=== PATIENT | female | born 1975 | race Caucasian/White ===

== ENCOUNTER 2017-12-03 14:41 | Emergency (ER) | payer OTHER ==
[~2017-12-03 14:41] MED LIST: Ambien PO; Atarax,Vistaril PO; Bentyl PO; CARAFATE1 GM PO; Catapres-TTS 2 TD; Colace PO; Desyrel PO; Dulcolax PO; ENDOCET 5-3251 EACH; FERGON324 MG PO; Feosol PO; HYDROCHLOROTH12.5 M1; KlonoPIN PO; LOPRESSOR25 MG PO; LUNESTA2 MG; Lopressor PO; Miralax, Glycolax PO; ONDANSETRON HCL8 MG; OxyCONTIN PO; PHENERGAN25 MG PO; PROTONIX40 MG PO; PROzac PO; PriLOSEC PO; Proventil,Ventolin H IH; Remeron PO; Robitussin, Organidi PO; SEROQUEL200 MG PO; Senokot S,Pericolace PO; Skelaxin PO; TOPAMAX100 MG PO; TOPAMAX25 MG PO; TRAMADOL HCL50 MG PO; Theragran PO; Theragran W/Iron,MVI PO; Theragran-M,Centrum, PO; Thiamine,Vitamin B1 PO; ULTRAM50 MG PO; Vicodin,Norco 5/325 PO; ZOFRAN4 MG PO; ZOLOFT25 MG; Zestril,Prinivil PO; oxyCODONE PO
[2017-12-03 15:10] LABS: BASOPHIL (%) 0.4 % (0-1); BASOPHIL COUNT 0.1 K/uL (0-0.1); EOSINOPHIL (%) 0.4 % (0-5); EOSINOPHIL COUNT 0.1 K/uL (0-0.3); HEMATOCRIT 38.6 % (36.0-46.0); HEMOGLOBIN 13.6 G/DL (11.9-15.5); IMMATURE GRANULOCYTE (%) 0.7 % (0.0-0.7); LYMPHOCYTE (%) 15.7 % (15-42); LYMPHOCYTE COUNT 1.8 K/uL (1.0-2.8); MCH 31.5 PG (29.0-34.0); MCHC 35.2 G/DL (30.0-36.0); MCV 89.4 FL (83-99); MONOCYTE (%) 6.6 % (3-12); MONOCYTE COUNT 0.8 K/uL (0-0.8); NEUTROPHIL (%) 76.2 % (45-76); NEUTROPHIL COUNT 8.8 K/uL (1.8-6.4); PLATELET COUNT 267 K/uL (156-360); RBC DIS.WIDTH-CV 12.1 % (11.8-14.6); RBC DIS.WIDTH-SD 39.3 % (39-53); RED BLOOD COUNT 4.32 M/uL (3.80-5.20); WHITE BLOOD COUNT 11.5 K/uL (4.1-10.2)
[2017-12-03 15:30] LABS: AMYLASE 91 IU/L (1-118); CHLORIDE 97 mEq/L (99-109); POTASSIUM 4.4 mEq/L (3.7-5.4); SODIUM 129 mEq/L (136-147)
[2017-12-03 15:32] LABS: GLUCOSE 70 mg/dL (70-99)
[2017-12-03 15:35] LABS: SERUM ETHYL ALCOHOL 53 mg/dL
[2017-12-03 15:36] LABS: GFR ESTIMATE (CALCULATED) > 59 mL/min/
[2017-12-03 15:37] LABS: UREA NITROGEN (BUN) 28 mg/dL (9-23)
[2017-12-03 15:39] LABS: LIPASE 30 U/L (1.0-51.0)
[2017-12-03 15:46] LABS: QUANTITATIVE HCG < 4.0 MIU/ML
[2017-12-03] MEDS ORDERED: ROXICODONE5 MG PO (18:21)
== END 2017-12-03 20:06 | disposition home or self-care (01) ==
LOC: TRA 14:41
PROVIDERS: Emergency Medicine
DX: S01.511A Laceration without foreign body of lip, initial encounter (principal); M54.6 Pain in thoracic spine; M79.602 Pain in left arm; M54.2 Cervicalgia; M54.5 Low back pain; R41.0 Disorientation, unspecified; V47.5XXA Car driver injured in collision with fixed or stationary object in traffic accident, initial encounter; Y92.410 Unspecified street and highway as the place of occurrence of the external cause; I77.810 Thoracic aortic ectasia; M48.02 Spinal stenosis, cervical region; M47.894 Other spondylosis, thoracic region; M25.78 Osteophyte, vertebrae; J98.11 Atelectasis; K43.9 Ventral hernia without obstruction or gangrene; G89.29 Other chronic pain; Z79.891 Long term (current) use of opiate analgesic; Y90.2 Blood alcohol level of 40-59 mg/100 ml; Z23 Encounter for immunization
CPT/HCPCS: 70450; 71260; 72125; 72129; 72132; 74177; 80048; 81003; 82150; 83690; 84702; 85025; 86850; 86900; 86901; 99281; 99285; G0480; J2270; J3010